=== PATIENT | female | born 1960 | race Caucasian/White ===

== ENCOUNTER 2018-12-17 05:33 | Day surgery (SDC) | payer BC ==
[~2018-12-17] VITALS: Ht 157.5 cm; Wt 73.1 kg
[~2018-12-17 05:33] MED LIST: MULTIPLE VITAMI1 CAP PO
[2018-12-17 06:40] VITALS: BP 145/85; PULSE 71; TEMP 97.6
[2018-12-17 08:23] VITALS: BP 110/65; BP 115/65; PULSE 55; PULSE 60; TEMP 97.6
--- NOTE | 2018-12-17 08:23 | NUR ---
Pt returned from OR via cart by KRIS Gaines and RANDY Dye. Pt A&O. VSS-see flowsheet. X4 excisional sites on face noted with sutures and bactroban ointment to each. Denied wanting to eat, given water per request. Side rails up and call light in reach. Spouse telephoned by after surgery as well as this nurse to verify.
[2018-12-17 08:38] VITALS: BP 110/65; PULSE 60
[2018-12-17] MEDS ORDERED: NORCO 325 MG-51 TAB PO (08:46)
[2018-12-17 08:53] VITALS: BP 115/64; PULSE 73
[2018-12-17 09:08] VITALS: BP 117/76; PULSE 58
[2018-12-17 09:23] VITALS: BP 104/69; PULSE 69
--- NOTE | 2018-12-17 10:05 | NUR ---
Pt tolerated water. VS remain stable. Up to void without difficulty. Denied pain or other complaints. Spouse returned and present for dc teaching. Discharge teaching completed, pt and spouse verbalized understanding. IV removed with pressure dressing applied and catheter tip intact upon removal. Pt dressed and taken via wheelchair to private vehicle for dc home with spouse driving.
== END 2018-12-17 10:05 | disposition home or self-care (01) ==
LOC: SDCO 05:33
DX: C44.319 Basal cell carcinoma of skin of other parts of face (principal); C44.311 Basal cell carcinoma of skin of nose; C44.01 Basal cell carcinoma of skin of lip
CPT/HCPCS: J0690; J1885; J2405; J2704; J3010; J7120